=== PATIENT | female | born 1980 | race Caucasian/White ===

== ENCOUNTER 2020-04-11 16:13 | Emergency (ER) | payer OTHER ==
[~2020-04-11] VITALS: Ht 157.5 cm; Wt 60.7 kg
[2020-04-11] MEDS ORDERED: ALBU8.5H INH (16:42)
[2020-04-11] MEDS ORDERED: AZO-95TA3 PO (16:42)
[2020-04-11] MEDS ORDERED: KETOROLAC 30 MG/ML 1ML VIAL IV ONE (18:45)
[2020-04-11] MEDS ORDERED: NS 1,000 ML IV ONE (18:45)
[2020-04-11 19:42] LABS: BASO # 0.1 10^3/uL (0.0-0.2); BASO % 0.5 % (0.0-1.0); EOS # 0.1 10^3/uL (0.0-0.5); EOS % 0.7 % (0.0-3.0); HEMATOCRIT 36.6 % (36.0-47.0); HEMOGLOBIN 11.5 g/dl (12.0-15.5); LYMPH % 31.4 % (24.0-44.0); MEAN CORPUSCULAR HEMOGLOBIN 27.1 pg (27.0-33.0); MEAN CORPUSCULAR HGB CONC 31.4 g/dl (32.0-36.5); MEAN CORPUSCULAR VOLUME 86.1 fl (80.0-96.0); MONO # 0.4 10^3/uL (0.0-0.8); MONO % 4.2 % (0.0-5.0); NEUTROPHILS % 62.9 % (36.0-66.0); PLATELET COUNT, AUTOMATED 307 10^3/uL (150-450); RED BLOOD COUNT 4.25 10^6/uL (4.00-5.40); WHITE BLOOD COUNT 9.5 10^3/uL (4.0-10.0)
--- NOTE | 2020-04-11 20:57 | REPVR ---
PROCEDURE INFORMATION: Exam: CT Abdomen And Pelvis Without Contrast Exam date and time: 04/11/2020 8:16 PM Age: 39 years old Clinical indication: Abdominal pain; Flank; Left; Additional info: Left low back pain TECHNIQUE: Imaging protocol: Computed tomography of the abdomen and pelvis without contrast. Radiation optimization: All CT scans at this facility use at least one of these dose optimization techniques: automated exposure control; mA and/or kV adjustment per patient size (includes targeted exams where dose is matched to clinical indication); or iterative reconstruction. COMPARISON: No relevant prior studies available. FINDINGS: Liver: Normal. No mass. Gallbladder and bile ducts: Normal. No calcified stones. No ductal dilation. Pancreas: Normal. No ductal dilation. Spleen: Normal. No splenomegaly. Adrenal glands: Normal. No mass. Kidneys and ureters: Normal. No hydronephrosis. Stomach and bowel: Unremarkable. No obstruction. No mucosal thickening. Appendix: No evidence of appendicitis. Intraperitoneal space: Unremarkable. No free air. No significant fluid collection. Vasculature: Unremarkable. No abdominal aortic aneurysm. Lymph nodes: Unremarkable. No enlarged lymph nodes. Urinary bladder: Unremarkable as visualized. Reproductive: Unremarkable as visualized. Bones/joints: Unremarkable. No acute fracture. Soft tissues: Unremarkable. IMPRESSION: No acute findings. Electronically signed by: Saran Roberts On 04/11/2020 20:57:29 PM
[2020-04-11] MEDS ORDERED: ASPE4PAD TOP (21:24)
[2020-04-11] MEDS ORDERED: ROBA750T4 PO (21:24)
[2020-04-11 21:30] VITALS: BP 131/63
== END 2020-04-11 21:48 | disposition home or self-care (01) ==
LOC: M ED 16:13
DX: M54.5 Low back pain (principal); M54.6 Pain in thoracic spine; K90.0 Celiac disease; Z88.1 Allergy status to other antibiotic agents; Z91.040 Latex allergy status
CPT/HCPCS: 74176; 80047; 81001; 84702; 85025; 96361; 96374; 99284; J1885

== ENCOUNTER 2020-07-16 00:47 | Emergency (ER) | payer OTHER ==
[~2020-07-16] VITALS: Ht 157.5 cm; Wt 59.4 kg
[~2020-07-16 00:47] MED LIST: ALBU8.5H INH; ASPE4PAD TOP; AZO-95TA3 PO; ROBA750T4 PO
[2020-07-16] MEDS ORDERED: BENA25CA4 PO (00:57)
[2020-07-16] MEDS ORDERED: diphenhydrAMINE 50MG/ML VIAL (J1200) IV ONE (02:00)
[2020-07-16] MEDS ORDERED: methylPREDNISolone 125MG 2ML VIAL IV ONE (02:00)
[2020-07-16] MEDS ORDERED: FAMOTIDINE INJ 20MG/2ML VIAL (S0028 PER 1) IVP ONE (02:00)
[2020-07-16] MEDS ORDERED: NS 1,000 ML IV ONE (02:00)
[2020-07-16] MEDS ORDERED: PRED20TA PO (04:19)
[2020-07-16 04:36] VITALS: BP 120/64
== END 2020-07-16 04:38 | disposition home or self-care (01) ==
LOC: M ED 00:47
DX: R22.1 Localized swelling, mass and lump, neck (principal); T78.40XA Allergy, unspecified, initial encounter; Y92.9 Unspecified place or not applicable; Y93.9 Activity, unspecified; R51.9 Headache, unspecified; J45.909 Unspecified asthma, uncomplicated; K90.0 Celiac disease; Z88.1 Allergy status to other antibiotic agents; Z91.040 Latex allergy status
CPT/HCPCS: 96361; 96374; 96375; 99284; J1200; J2930

== ENCOUNTER 2020-07-24 16:26 | Observation (INO) | payer OTHER ==
[~2020-07-24] VITALS: Ht 157.5 cm; Wt 59.8 kg
[~2020-07-24 16:26] MED LIST changes: +BENA25CA4 PO; +PRED20TA PO
[2020-07-24] MEDS ORDERED: HYDR-3363 (16:36)
[2020-07-24] MEDS ORDERED: methylPREDNISolone 125MG 2ML VIAL IV ONE (19:40)
[2020-07-24] MEDS ORDERED: diphenhydrAMINE 50MG/ML VIAL (J1200) IV ONE (19:40)
[2020-07-24] MEDS ORDERED: FAMOTIDINE IV BAG 20 MG in IV 1 EA IV ONE (19:40)
[2020-07-24 20:30] LABS: ERYTHROCYTE SEDIMENTATION RATE 8 mm/hr (0-20)
[2020-07-24 20:37] LABS: ALBUMIN 4.3 GM/DL (3.2-5.2); ALT/SGPT 92 U/L (12-78); BILIRUBIN,DIRECT < 0.1 MG/DL (0.0-0.2); BILIRUBIN,TOTAL 0.2 MG/DL (0.2-1.0); BLOOD UREA NITROGEN 14 MG/DL (7-18); CALCIUM LEVEL 9.5 MG/DL (8.5-10.1); CARBON DIOXIDE LEVEL 28 MEQ/L (21-32); CHLORIDE LEVEL 106 MEQ/L (98-107); COMPLEMENT C4 24 MG/DL (10-40); CREATININE FOR GFR 0.57 MG/DL (0.55-1.30); GLOMERULAR FILTRATION RATE > 60.0 (>58); GLUCOSE, FASTING 98 MG/DL (70-100); POTASSIUM SERUM 3.8 MEQ/L (3.5-5.1); SODIUM LEVEL 140 MEQ/L (136-145); TOTAL PROTEIN 7.2 GM/DL (6.4-8.2)
[2020-07-24] MEDS ORDERED: ISOVUE-370 76% 100ML VIAL As Ordered ONE (21:05)
[2020-07-24 21:11] LABS: BASO % 0.2 % (0.0-1.0); EOS % 0.1 % (0.0-3.0); HEMATOCRIT 36.9 % (36.0-47.0); HEMOGLOBIN 12.1 g/dl (12.0-15.5); LYMPH # 3.7 10^3/uL (1.5-5.0); LYMPH % 20.6 % (24.0-44.0); MEAN CORPUSCULAR HGB CONC 32.8 g/dl (32.0-36.5); MEAN CORPUSCULAR VOLUME 85.4 fl (80.0-96.0); MONO # 0.9 10^3/uL (0.0-0.8); NEUTROPHILS # 13.2 10^3/uL (1.5-8.5); NEUTROPHILS % 73.4 % (36.0-66.0); PLATELET COUNT, AUTOMATED 416 10^3/uL (150-450); RED BLOOD COUNT 4.32 10^6/uL (4.00-5.40)
[2020-07-24 21:36] LABS: HCG, SERUM QUALITATIVE NEGATIVE (NEGATIVE)
--- NOTE | 2020-07-24 22:44 | REPVR ---
PROCEDURE INFORMATION: Exam: CT Neck With Contrast Exam date and time: 07/24/2020 9:58 PM Age: 40 years old Clinical indication: Mass, lump, or swelling in neck; Additional info: Throat swelling TECHNIQUE: Imaging protocol: Computed tomography images of the neck with contrast. Radiation optimization: All CT scans at this facility use at least one of these dose optimization techniques: automated exposure control; mA and/or kV adjustment per patient size (includes targeted exams where dose is matched to clinical indication); or iterative reconstruction. Contrast material: ISOVUE 370; Contrast volume: 75 ml; Contrast route: INTRAVENOUS (IV); COMPARISON: No relevant prior studies available. FINDINGS: Nasopharynx: Unremarkable. Oropharynx: Unremarkable. No significant tonsillar enlargement. Hypopharynx: Unremarkable. Larynx: Unremarkable. Normal epiglottis. Retropharyngeal space: Unremarkable. Submandibular/Parotid glands: Normal. Glands are normal in size. Thyroid: Normal. No enlarged or calcified nodules. Lymph nodes: Unremarkable. No lymphadenopathy. Trachea: Visualized trachea is unremarkable. Lungs: Unremarkable as visualized. Bones/joints: Unremarkable. No acute fracture. Soft tissues: Unremarkable. No significant soft tissue swelling. IMPRESSION: No acute abnormality involving the soft tissues of the neck. Electronically signed by: Nino Villeda On 07/24/2020 22:44:37 PM
[2020-07-24] MEDS ORDERED: BANO25TA PO (23:59)
[2020-07-24] MEDS ORDERED: PRED20TA PO (23:59)
[2020-07-24] MEDS ORDERED: HYDR-3363 PO (23:59)
[2020-07-24] MEDS ORDERED: FLUT22IN INH (23:59)
[2020-07-24] MEDS ORDERED: PROAAER10 INH (23:59)
[2020-07-25] MEDS ORDERED: diphenhydrAMINE 50MG/ML VIAL (J1200) IV PRN (00:30)
[2020-07-25] MEDS ORDERED: ACETAMINOPHEN TAB 650MG DOSE (2X325MG) PO PRN (00:30)
[2020-07-25] MEDS ORDERED: MAALOX 30 ML SUSP *UDC PO PRN (00:30)
[2020-07-25] MEDS ORDERED: MOM 30ML SUSPENSION UDC PO PRN (00:30)
--- NOTE | 2020-07-25 00:31 | HPEPDOC ---
[facility] Medical History & Physical Date of Admission Jul 25, 2020 Date of Service: Jul 25, 2020 History and Physical CHIEF COMPLAINT: Facial and neck swelling HISTORY OF PRESENT ILLNESS: 40 yo F with a hx of asthma, celiac disease, seasonal/environmental allergies, was seen in ER for swelling of her face, eyes and throat without wheezing or difficulty swallowing. She states that she has developed urticaria, pruritis since 07/13 which has not been effectively treared with medication. She was last seen in [facility] ER on 07/16/20, was given prednisone, pepcid, benadryl and followed up with PCP with continuation of prednisone. She states that his morning she developed significant swelling of her neck, face and eyes. She was given a dose of IV solumedrol, benadryl and famotidine with marked improvement of her symptoms. She has had a difficult time findings an appointment with an resort keeper. She is denying difficulty breathing, wheezing, chest pain, palpitations, n/v/d. CT neck showing no acute abnormality in soft tissue. PAST MEDICAL HISTORY: Asthma numerous environmental allergies, seasonal allergies celiac disease SOCIAL HISTORY: denies tobacco use denies etoh use denies illicit drug use FAMILY HISTORY: celiac disease ALLERGIES: Please see below. REVIEW OF SYSTEMS: 10 point ROS was completed, relevant findings are noted in HPI HOME MEDICATIONS: Please see below. PHYSICAL EXAMINATION: VITAL SIGNS: please see below General: NAD, comfortable HEENT: PERRLA, EOMI, sclerae clear. mild swelling of orbits Neck: supple, normal ROM, no JVD Respiratory: lungs CTAB, no wheeze, no rales, no crackles CVS: RRR, normal S1, S2, no murmurs Abdo: soft, no masses, no hepatosplenomegaly, BS+, no rebound tenderness Extremities: no edema, pulses 2+ MSK: no joint deformities, normal ROM Neuro: no focal neuro deficits, moving all 4 extremities, CN2-12 intact. Strength 5/5 in all 4 extremities. No nystagmus. Psych: calm, cooperative, AAO x 3 LABORATORY DATA: See below. IMAGING: CT neck with contrast (07/24/20): No acute abnormality involving the soft tissues of the neck. MICROBIOLOGY: Please see below. ASSESSMENT:1 yo F with a hx of asthma, celiac disease, seasonal/environmental a llergies, was seen in ER for swelling of her face, eyes and throat without wheezing or difficulty swallowing. She states that she has developed urticaria, pruritis since 07/13 which has not been effectively treated with PO medication. . PLAN: Urticaria - s/p IV solumedrol in ER - c/w prednisone - benadryl prn - cetirizine - needs to see allergy on DC Asthma - c/w inhalers Celiac disease DVT ppx: lovenox Dispo: pending clinical improvement Vital Signs Vital Signs Date Time Temp Pulse Resp B/P (MAP) Pulse Ox O2 Delivery O2 Flow Rate FiO2 07/24/20 22:11 78 97 07/24/20 22:03 126/67 (86) 07/24/20 16:27 97.5 18 Room Air Laboratory Data Labs 24H Laboratory Tests 2 07/24/20 19:38: Immature Granulocyte % (Auto) 0.7, Neutrophils (%) (Auto) 73.4H, Lymphocytes (%) (Auto) 20.6L, Monocytes (%) (Auto) 5.0, Eosinophils (%) (Auto) 0.1, Basophils (%) (Auto) 0.2, Neutrophils # (Auto) 13.2H, Lymphocytes # (Auto) 3.7, Monocytes # (Auto) 0.9H, Eosinophils # (Auto) 0.0, Basophils # (Auto) 0.0, Nucleated Red Blood Cells % (auto) 0.0, Erythrocyte Sedimentation Rate 8, Anion Gap 6L, Glomerular Filtration Rate > 60.0, Calcium Level 9.5, Total Bilirubin 0.2, Direct Bilirubin < 0.1, Aspartate Amino Transf (AST/SGOT) 27, Alanine Aminotransferase (ALT/SGPT) 92H, Alkaline Phosphatase 63, C-Reactive Protein, Quantitative 0.30, Total Protein 7.2, Albumin 4.3, Albumin/Globulin Ratio 1.5, Human Chorionic Gonadotropin, Qual NEGATIVE, Complement C4 24 07/24/20 22:58: CBC/BMP Laboratory Tests 07/24/20 19:38 Home Medications Scheduled Fluticasone Propionate (Flovent Hfa) 220 Mcg/Act Aer.w.adap, 2 PUFF INH BID Hydroxyzine HCl (Hydroxyzine HCl) 25 Mg Tablet, 25 MG PO BID IN BETWEEN BENADRYL DOSES Prednisone (Prednisone) 20 Mg Tablet, 40 MG PO DAILY Scheduled PRN Albuterol Sulfate (Proair Hfa) 8.5 Gm Hfa.aer.ad, 2 PUFF INH Q4H PRN for SHORTNESS OF BREATH Diphenhydramine HCl (Banophen) 25 Mg Tablet, 50 MG PO Q6H PRN for ITCHING Allergies Coded Allergies: Sulfa (Sulfonamide Antibiotics) (Verified Allergy, Severe, rashes and white spots, 07/24/20) Gluten Flour (Verified Allergy, Intermediate, skin irritations, 07/24/20) latex (Verified Allergy, Mild, rash, 04/11/20) neomycin (Verified Allergy, Mild, rash, 04/11/20) DANTE SUAREZ MD Jul 25, 2020 00:30
[2020-07-25 01:34] LABS: RSV AMPLIFICATION NEGATIVE (NEGATIVE)
[2020-07-25] MEDS ORDERED: ALBUTEROL 90 MCG/ACT 8GM HFA INHALER INH PRN (06:00)
[2020-07-25] MEDS ORDERED: HYDR-3363 PO (07:11)
[2020-07-25] MEDS ORDERED: PRED10TA2 PO (07:11)
[2020-07-25] MEDS ORDERED: methylPREDNISolone 125MG 2ML VIAL IV ONE ×2 (07:15)
[2020-07-25] MEDS ORDERED: CETIRIZINE (ZyrTEC) 10 MG TAB PO ONE (07:25)
[2020-07-25] MEDS ORDERED: MONTELUKAST 10 MG TAB PO ONE (07:25)
[2020-07-25] MEDS ORDERED: SING10TA32 PO (07:26)
[2020-07-25] MEDS ORDERED: ZYRTTAB8 PO (07:26)
[2020-07-25 07:29] LABS: BASO % 0.1 % (0.0-1.0); HEMATOCRIT 34.7 % (36.0-47.0); HEMOGLOBIN 11.1 g/dl (12.0-15.5); LYMPH # 1.5 10^3/uL (1.5-5.0); LYMPH % 8.8 % (24.0-44.0); MEAN CORPUSCULAR HEMOGLOBIN 27.4 pg (27.0-33.0); MEAN CORPUSCULAR VOLUME 85.7 fl (80.0-96.0); MONO # 0.5 10^3/uL (0.0-0.8); MONO % 2.8 % (2.0-8.0); NEUTROPHILS # 15.1 10^3/uL (1.5-8.5); NEUTROPHILS % 87.5 % (36.0-66.0); PLATELET COUNT, AUTOMATED 355 10^3/uL (150-450); RED BLOOD COUNT 4.05 10^6/uL (4.00-5.40); WHITE BLOOD COUNT 17.3 10^3/uL (4.0-10.0)
[2020-07-25 07:50] LABS: ALBUMIN 3.8 GM/DL (3.2-5.2); ALT/SGPT 71 U/L (12-78); BILIRUBIN,TOTAL 0.5 MG/DL (0.2-1.0); BLOOD UREA NITROGEN 12 MG/DL (7-18); CALCIUM LEVEL 9.6 MG/DL (8.5-10.1); CARBON DIOXIDE LEVEL 26 MEQ/L (21-32); CHLORIDE LEVEL 105 MEQ/L (98-107); CREATININE FOR GFR 0.44 MG/DL (0.55-1.30); GLOMERULAR FILTRATION RATE > 60.0 (>58); GLUCOSE, FASTING 133 MG/DL (70-100); MAGNESIUM LEVEL 2.6 MG/DL (1.8-2.4); POTASSIUM SERUM 4.3 MEQ/L (3.5-5.1); SODIUM LEVEL 138 MEQ/L (136-145); TOTAL PROTEIN 6.5 GM/DL (6.4-8.2)
--- NOTE | 2020-07-25 08:03 | DSES ---
DISCHARGE SUMMARY DATE OF ADMISSION: 07/24/2020 DATE OF DISCHARGE: 07/25/2020 PRIMARY DISCHARGE DIAGNOSIS: 1. Angioedema/urticaria/history of asthma. 2. History of celiac disease. DISCHARGE MEDICATIONS: 1. Prednisone taper. 2. Zyrtec 10 mg b.i.d. 3. Singulair 10 mg daily. 4. Hydroxyzine 25 mg every 6 hours as needed for pruritus. 5. Albuterol two puffs inhaled q. 4. 6. Flovent two puffs inhaled b.i.d. HOSPITAL COURSE: This is a 40-year-old female with a history of celiac disease, asthma, numerous environmental allergies and seasonal allergies, seen in the Emergency Room July 16 and sent home on prednisone taper, Atarax, returns with facial and neck swelling without any wheezing or difficulty swallowing. She has had urticaria and pruritus since 07/13, not effectively treated, given prednisone, Pepcid, Benadryl, followed up with PCP and has been continued on prednisone since then. In the Emergency Room, the patient had no airway difficulties, was given IV Solu-Medrol q. 6 hourly times three doses, Benadryl and Famotidine with significant improvement. Patient has had a difficult time finding an computing services director and could not be seen until late August 2020. Patient denies any respiratory distress or wheezing. CT of the head had no abnormalities. Patient is discharged in stable condition. PHYSICAL EXAMINATION: VITAL SIGNS: Temperature 97.6, pulse 72, respiratory rate 18, blood pressure 110/60, 97% on room air. GENERAL: Awake, alert and oriented x3. HEENT: No swelling of the lips, no stridor. No rashes or erythematous lesions on the face, bilateral or upper extremities. LUNGS: Clear to auscultation No wheezes, rales or rhonchi. HEART: S1 and S2, sinus rhythm. ABDOMEN: Soft, nontender and nondistended. EXTREMITIES: No cyanosis, clubbing or pitting edema. LABORATORY DATA: White count 18, hemoglobin 12, hematocrit 36, platelet count 416,000, sodium 140, potassium 3.8, chloride 106, bicarbonate 28, BUN 14, creatinine 0.57. C1 esterase inhibitor and C4 pending. Coronavirus [address] of the neck with contrast: No acute abnormality involving the soft tissues of the neck. DISCHARGE INSTRUCTIONS: Patient is to be seen by an computing services director within one week of hospital discharge to recurrent angioedema symptoms. 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 Defer to computing services director once confirmed. TIME SPENT ON DISCHARGE: 30 minutes
[2020-07-25] MEDS ORDERED: ENOXAPARIN 40MG/0.4ML SYRINGE (J1650 PER 10MG) SC SCH (09:00)
[2020-07-25] MEDS ORDERED: predniSONE 20 MG TAB PO SCH (09:00)
[2020-07-25] MEDS ORDERED: DOCUSATE SODIUM 100MG CAPSULE PO SCH (09:00)
--- NOTE | 2020-07-25 09:20 | DS.PDOC ---
Discharge Summary General Date of Admission Jul 24, 2020 at 16:27 Date of Discharge 07/25/20 Discharge Summary addendum to discharge summary: Per Dr. Marcelo, Allergy/Film Vault Supervisor, obtain the following blood tests/ fu appt either or wed next week: -cbc w differential -esr/crp -c1 esterase functional and quantitative -rheumatoid factor -tsh [facility] lab cannot do CHRONIC URTICARIA INDEX -Pt was given a prescription to go to [facility] -per lab gabby result return in 5-7days Per [facility] office, the following to be faxed to [phone] -insurance card -face sheet -h&P/discharge summary -labs -CT neck Vital Signs/I&Os Vital Signs Date Time Temp Pulse Resp B/P (MAP) Pulse Ox O2 Delivery O2 Flow Rate FiO2 07/25/20 07:00 97.6 72 18 110/60 (77) 97 Room Air I&O- Last 24 Hours up to 6 AM 07/25/20 06:00 Intake Total 50 ml Balance 50 ml Laboratory Data Labs 24H Laboratory Tests 2 07/24/20 19:38: Immature Granulocyte % (Auto) 0.7, Neutrophils (%) (Auto) 73.4H, Lymphocytes (%) (Auto) 20.6L, Monocytes (%) (Auto) 5.0, Eosinophils (%) (Auto) 0.1, Basophils (%) (Auto) 0.2, Neutrophils # (Auto) 13.2H, Lymphocytes # (Auto) 3.7, Monocytes # (Auto) 0.9H, Eosinophils # (Auto) 0.0, Basophils # (Auto) 0.0, Nucleated Red Blood Cells % (auto) 0.0, Erythrocyte Sedimentation Rate 8, Anion Gap 6L, Glomerular Filtration Rate > 60.0, Calcium Level 9.5, Total Bilirubin 0.2, Direct Bilirubin < 0.1, Aspartate Amino Transf (AST/SGOT) 27, Alanine Aminotransferase (ALT/SGPT) 92H, Alkaline Phosphatase 63, C-Reactive Protein, Quantitative 0.30, Total Protein 7.2, Albumin 4.3, Albumin/Globulin Ratio 1.5, Human Chorionic Gonadotropin, Qual NEGATIVE, Complement C4 24 07/24/20 22:58: 07/24/20 23:50: Coronavirus (COVID-19)(PCR) NEGATIVE, Influenza Type A (RT-PCR) NEGATIVE, Influenza Type B (RT-PCR) NEGATIVE, Respiratory Syncytial Virus (PCR) NEGATIVE 07/25/20 07:00: Immature Granulocyte % (Auto) 0.8, Neutrophils (%) (Auto) 87.5H, Lymphocytes (%) (Auto) 8.8L, Monocytes (%) (Auto) 2.8, Eosinophils (%) (Auto) 0.0, Basophils (%) (Auto) 0.1, Neutrophils # (Auto) 15.1H, Lymphocytes # (Auto) 1.5, Monocytes # (Auto) 0.5, Eosinophils # (Auto) 0.0, Basophils # (Auto) 0.0, Nucleated Red Blood Cells % (auto) 0.0, Anion Gap 7L, Glomerular Filtration Rate > 60.0, Calcium Level 9.6, Total Bilirubin 0.5#, Aspartate Amino Transf (AST/SGOT) 16, Alanine Aminotransferase (ALT/SGPT) 71, Alkaline Phosphatase 57, Total Protein 6.5, Albumin 3.8, Albumin/Globulin Ratio 1.4, Magnesium Level 2.6H CBC/BMP Laboratory Tests 07/24/20 19:38 07/25/20 07:00 Discharge Medications Scheduled Cetirizine HCl/Pseudoephedrine (Zyrtec-D Tablet) 1 Each Tab.er.12h, 1 TAB PO BID for allergy symptoms Fluticasone Propionate (Flovent Hfa) 220 Mcg/Act Aer.w.adap, 2 PUFF INH BID, (Reported) Montelukast Sodium (Singulair) 10 Mg Tablet, 10 MG PO DAILY Prednisone (Prednisone) 10 Mg Tablet, 10 MG PO TAPER Take 4 tabs daily x 3 days, then 3 tabs daily x 3 days, then 2 tabs daily x 3 days, then 1 tab daily x 3 days and stop Scheduled PRN Albuterol Sulfate (Proair Hfa) 8.5 Gm Hfa.aer.ad, 2 PUFF INH Q4H PRN for SHORTNESS OF BREATH, (Reported) Hydroxyzine HCl (Hydroxyzine HCl) 25 Mg Tablet, 25 MG PO Q6HP PRN for pruritus/edema Allergies Coded Allergies: Sulfa (Sulfonamide Antibiotics) (Verified Allergy, Severe, rashes and white spots, 07/24/20) Gluten Flour (Verified Allergy, Intermediate, skin irritations, 07/24/20) latex (Verified Allergy, Mild, rash, 04/11/20) neomycin (Verified Allergy, Mild, rash, 04/11/20) GONZALO MIRANDA MD Jul 25, 2020 09:20
[2020-07-25 09:37] LABS: C REACTIVE PROTEIN QUANTITATIV < 0.30 MG/DL (0.00-0.30); RHEUMATOID FACTOR QUANT < 10.0 IU/ML (<15.0); T UPTAKE 36 % (30-39); THYROXINE (T4) 5.5 UG/DL (4.5-12.0)
[2020-07-25 10:06] LABS: ERYTHROCYTE SEDIMENTATION RATE 10 mm/hr (0-20)
[2020-07-25 13:00] VITALS: BP 115/76
[2020-07-29 17:07] LABS: TRYPTASE 2.4 ug/L (2.2-13.2)
== END 2020-07-25 15:01 | disposition home or self-care (01) ==
LOC: M ED 16:26 → M ED INP 16:27
PROVIDERS: ADMIT Family Medicine; ATTEND Family Medicine
DX: R22.0 Localized swelling, mass and lump, head (principal); R22.1 Localized swelling, mass and lump, neck; T78.3XXA Angioneurotic edema, initial encounter; Y92.89 Other specified places as the place of occurrence of the external cause; K90.0 Celiac disease; J45.909 Unspecified asthma, uncomplicated; R51.9 Headache, unspecified; Z79.899 Other long term (current) drug therapy; Z79.52 Long term (current) use of systemic steroids; Z79.51 Long term (current) use of inhaled steroids; Z88.2 Allergy status to sulfonamides; Z88.3 Allergy status to other anti-infective agents; Z91.040 Latex allergy status; Z91.018 Allergy to other foods
CPT/HCPCS: 36415; 70491; 80048; 80053; 80076; 83519; 83520; 83735; 84436; 84443; 84479; 84703; 85025; 85280; 85652; 86038; 86140; 86160; 86161; 86332; 86431; 87631; 93041; 94760; 96365; 96375; 96376; 99285; J1200; J2930; Q9967

== ENCOUNTER → 2020-07-30 | Outpatient (CLI) | payer OTHER ==
[~2020-07-30] MED LIST changes: +BANO25TA PO; +FLUT22IN INH; +HYDR-3363; +HYDR-3363 PO; +PRED10TA2 PO; +PROAAER10 INH; +SING10TA32 PO; +ZYRTTAB8 PO
[2020-07-30 17:03] LABS: RHEUMATOID FACTOR QUANT < 10.0 IU/ML (<15.0)
[2020-07-30 17:35] LABS: THYROGLOBULIN ANTIBODY < 15.0 U/ML (<60.0); THYROID PEROXIDASE ANTIBODY < 28.0 U/ML (<60.0)
== END ==
LOC: M WUC 11:10
PROVIDERS: ATTEND Allergy & Immunology Allergy
DX: L50.1 Idiopathic urticaria (principal); J31.0 Chronic rhinitis

== ENCOUNTER → 2020-12-22 | Outpatient (REF) | payer OTHER | LOC: M LAB REF 17:47 | PROVIDERS: ATTEND Physician Assistant Medical | DX: R50.9 Fever, unspecified (principal) ==

== ENCOUNTER → 2021-05-08 | Outpatient (REF) | payer OTHER ==
[2021-05-08 13:34] LABS: PERCENT SATURATION 42.3 % (13.2-45.0); PHOSPHORUS LEVEL 3.8 MG/DL (2.5-4.9)
[2021-05-08 13:38] LABS: TOTAL 25(OH) VITAMIN D 110.9 NG/ML (30.0-100.0)
[2021-05-09 11:10] LABS: SSA SJOGRENS A <0.2 AI (0.0-0.9); SSB SJOGRENS B <0.2 AI (0.0-0.9)
== END ==
LOC: M SFHCRHEU 10:25
PROVIDERS: ATTEND Internal Medicine
DX: M79.10 Myalgia, unspecified site (principal); R68.2 Dry mouth, unspecified; E83.119 Hemochromatosis, unspecified

== ENCOUNTER → 2021-06-03 | Outpatient (CLI) | payer OTHER | LOC: M RAD 11:30 | PROVIDERS: ATTEND Internal Medicine | DX: M79.643 Pain in unspecified hand (principal); M79.604 Pain in right leg ==

== ENCOUNTER → 2021-06-25 | Outpatient (CLI) | payer OTHER ==
[2021-06-25 11:43] LABS: TOTAL 25(OH) VITAMIN D 52.4 NG/ML (30.0-100.0)
== END ==
LOC: M LAB 10:20
PROVIDERS: ATTEND Internal Medicine
DX: M79.10 Myalgia, unspecified site (principal); R74.8 Abnormal levels of other serum enzymes

== ENCOUNTER → 2021-07-10 | Outpatient (CLI) | payer OTHER ==
[~2021-07-10] MED LIST changes: +ALEV220T22 PO; +DIGECAP7 PO; +EPIP0.3I2 IM; +FAMO40TA3 PO; +PREDOPD OU; +PROB250C PO; +VITMTA PO; +[UNRECOGNIZED DRUG - CODE] PO
== END ==
LOC: M RAD 16:06
PROVIDERS: ATTEND Internal Medicine
DX: M25.541 Pain in joints of right hand (principal); M25.542 Pain in joints of left hand

== ENCOUNTER → 2021-07-14 | Outpatient (CLI) | payer OTHER | LOC: M LABSMTC 11:40 | PROVIDERS: ATTEND Anesthesiology | DX: Z01.818 Encounter for other preprocedural examination (principal); Z11.52 Encounter for screening for COVID-19 ==

== ENCOUNTER → 2021-07-21 | Outpatient (CLI) | payer OTHER | LOC: M LABSMTC 10:00 | PROVIDERS: ATTEND Anesthesiology | DX: Z01.818 Encounter for other preprocedural examination (principal); Z11.52 Encounter for screening for COVID-19 ==

== ENCOUNTER 2021-07-24 10:31 | Day surgery (SDC) | payer OTHER ==
[~2021-07-24] VITALS: Ht 157.5 cm; Wt 62.1 kg
[~2021-07-24 10:31] MED LIST changes: +LIDOCAINE 1% MDV 20ML VIAL SQ PRN; +LR 1,000 ML IV ONE; +ceFAZolin SOD 2 GM in IV 1 EA IV ONE
[2021-07-24] MEDS ORDERED: LIDOCAINE 2% 100MG/5ML SDV (FOR ANES.) As Ordered ONE (10:57)
[2021-07-24] MEDS ORDERED: fentaNYL 100 MCG/2 ML INJECTION As Ordered ONE (10:57)
[2021-07-24] MEDS ORDERED: propofoL 200 MG/20 ML VIAL As Ordered ONE ×2 (10:57→12:11)
[2021-07-24] MEDS ORDERED: MIDAZOLAM INJ 2MG/2ML VIAL (J2250 PER 1MG) As Ordered ONE (10:57)
[2021-07-24] MEDS ORDERED: LIDOCAINE 1% SDV 30ML VIAL As Ordered ONE (11:37)
[2021-07-24] MEDS ORDERED: ceFAZolin 1GM VIAL (J0690 PER 500MG) As Ordered ONE (11:38)
[2021-07-24 13:55] VITALS: BP 108/63
== END 2021-07-24 13:56 | disposition home or self-care (01) ==
LOC: M SDC 10:31
PROVIDERS: ATTEND Obstetrics & Gynecology
DX: N32.81 Overactive bladder (principal); K90.0 Celiac disease; K21.9 Gastro-esophageal reflux disease without esophagitis; G43.909 Migraine, unspecified, not intractable, without status migrainosus; J45.909 Unspecified asthma, uncomplicated; M79.641 Pain in right hand; M79.642 Pain in left hand; M25.571 Pain in right ankle and joints of right foot; M25.572 Pain in left ankle and joints of left foot; Z91.048 Other nonmedicinal substance allergy status; Z91.040 Latex allergy status; Z91.018 Allergy to other foods; Z88.1 Allergy status to other antibiotic agents; Z88.2 Allergy status to sulfonamides; Z79.899 Other long term (current) drug therapy; Z79.1 Long term (current) use of non-steroidal anti-inflammatories (NSAID); Z79.51 Long term (current) use of inhaled steroids; Z79.52 Long term (current) use of systemic steroids
CPT/HCPCS: 64590; 81025; C1787; J0690; J2250; J3010